=== PATIENT | male | born 1990 | race Caucasian/White ===

== ENCOUNTER 2018-05-21 13:02 | Outpatient (CLI) | payer OTHER ==
[2018-05-21] MEDS ORDERED: IOTHALAMATE MEGLUMINE 50 ML VIAL IVP ONE ×2 (13:03→14:26)
[2018-05-21] MEDS ORDERED: IOTHALAMATE MEGLUMINE 50 ML VIAL ONE (13:22)
[2018-05-21] MEDS ORDERED: GADOPENTETATE DIMEGLUMINE 5 ML VIAL IVP ONE ×2 (13:22→14:26)
[2018-05-21] MEDS ORDERED: BUFFERED LIDOCAINE 10 ML SYRINGE IU ONE (14:26)
--- NOTE | 2018-05-21 16:04 | XRAY Report ---
Reason: PAIN IN RIGHT SHOULDER Procedure Date: 05/21/2018 Accession Number: [id number] / [id number] Procedure: FL - Arthrogram Needle Placement CPT Code: FULL RESULT: EXAM: RIGHT SHOULDER ARTHROGRAPHIC INJECTION WITH FLUOROSCOPIC GUIDANCE EXAM DATE: 05/21/2018 02:07 PM. CLINICAL HISTORY: PAIN IN RIGHT SHOULDER. COMPARISON: None. TECHNIQUE: The risks, benefits, and alternatives of the procedure were discussed with the patient. All questions were answered. Written and verbal consent were obtained. The glenohumeral joint was marked under fluoroscopy and prepped and draped in a sterile manner. Local anesthesia was performed with 1% lidocaine. A 22-gauge needle was then inserted into the glenohumeral joint. 10 mL of a solution containing 25% 1% lidocaine, 25% iodinated contrast, and a 1:200 dilution of gadolinium contrast in sterile saline was then injected. The needle was removed without immediate complication. Other: None. Fluoroscopy Time: 0.3 minutes. Number of Images: 13. FINDINGS: Bones and joints: No fracture or subluxation. Injection: Fluoroscopic images demonstrate needle placement and contrast in the glenohumeral joint. No contrast extravasation outside of the glenohumeral joint. IMPRESSION: Successful fluoroscopically guided arthrographic injection of the shoulder. [facility]
--- NOTE | 2018-05-22 11:50 | MRI Report ---
Reason: PAIN IN RIGHT SHOULDER Procedure Date: 05/21/2018 Accession Number: [id number] / [id number] Procedure: MRI - Arthrogram Shoulder RT CPT Code: FULL RESULT: EXAM: RIGHT SHOULDER MRI ARTHROGRAM WITH CONTRAST EXAM DATE: 05/21/2018 02:58 PM. CLINICAL HISTORY: Pain in right shoulder. COMPARISON: None. TECHNIQUE: Multiplanar, multisequence T1-weighted and fluid-sensitive sequences of the shoulder after an arthrographic injection of dilute gadolinium, dictated under a separate exam. Other: None. FINDINGS: Acromioclavicular Region: The acromion is type I. Minimal arthropathy at the acromioclavicular joint. The coracoacromial and coracoclavicular ligaments are intact. There is no contrast or fluid in the subacromial/subdeltoid bursa. Glenohumeral Region: No subluxation. No loose bodies. The articular cartilage is unremarkable. The glenohumeral ligaments and joint capsule are unremarkable. Bone Marrow: Tiny subcortical cysts and cortical irregularity at the distal end of the clavicle. Labrum: The labrum is unremarkable. Biceps Tendon: The long head of the biceps tendon and biceps sandeep are intact. Musculature/Rotator Cuff: The supraspinatus tendon is unremarkable. Mild infraspinatus tendinosis. Teres minor and subscapularis tendons are unremarkable. No edema or fatty atrophy. Other: The subcutaneous tissues are unremarkable. IMPRESSION: 1. Mild infraspinatus tendinosis. No rotator cuff tear. 2. No labral tear. 3. Minimal arthropathy at the acromioclavicular joint. There are tiny subcortical cysts and cortical irregularity at the distal end of the clavicle which may be degenerative in etiology or be related to previous remote injury. [facility] MUSCULOSKELETAL RADIOLOGY SECTION
== END 2018-05-21 13:03 | disposition home or self-care (01) ==
LOC: DI 13:02
PROVIDERS: ATTEND Family Medicine
DX: M75.91 Shoulder lesion, unspecified, right shoulder (principal)
CPT/HCPCS: 23350; 73222; 77002; Q9961